=== PATIENT | male | born 2000 | race Two or more races ===

== ENCOUNTER 2024-01-01 21:20 | Emergency (ER) | payer OTHER ==
[~2024-01-01] VITALS: Ht 177.8 cm; Wt 102.1 kg
[2024-01-01 22:43] VITALS: BP 133/73; TEMP 98.2
[2024-01-01 22:44] VITALS: PULSE 74; RESP 16; O2SAT 97
[2024-01-01] MEDS ORDERED: IBUP-1455 PO (23:12)
== END 2024-01-01 23:22 | disposition home or self-care (01) ==
LOC: ER 21:20
DX: S60.212A Contusion of left wrist, initial encounter (principal); V89.2XXA Person injured in unspecified motor-vehicle accident, traffic, initial encounter; Y93.89 Activity, other specified; Y92.89 Other specified places as the place of occurrence of the external cause; Y99.8 Other external cause status
CPT/HCPCS: 73110